=== PATIENT | female | born 1950 | race Caucasian/White ===

== ENCOUNTER 2021-10-04 12:16 | Inpatient (IN) | payer OTHER ==
[~2021-10-04] VITALS: Ht 149.9 cm; Wt 116.1 kg
[2021-10-04 12:28] VITALS: BP 103/76
--- NOTE | 2021-10-04 12:34 | NUR ---
PT SPO2 84% ON 1LNC, TITRATED UP TO 5LNC SPO2 99%. ERMD MADE AWARE. WILL CONTINUE TO MONITOR.
--- NOTE | 2021-10-04 13:10 | NUR ---
71/F PRESENTS TO ED WITH C/O WORSENING SOB, PATIENT STATES SHE IS ON 1L NC AT BASELINE. UPON ARRIVAL TO ED PATIENTS OXYGEN DROPPED TO HIGH 80S AND LOW 90S, PATIENTS O2 INCREASED TO 5-6L. PATIENT IS ALSO C/O PRODUCTIVE COUGH, DENIES FEVERS, N/V/D, ABD PAIN OR URINARY SYMPTOMS. PTAIENT REPORTS 10/10 BODY PAIN X2 DAYS.
--- NOTE | 2021-10-04 14:06 | NUR ---
LAB BEDSIDE FOR BLOOD DRAW
[2021-10-04 14:24] LABS: BASOPHILS % (AUTO) 0.4 % (0.0-2.0); EOSINOPHILS # (AUTO) 0.1 K/uL (0-0.4); EOSINOPHILS % (AUTO) 0.7 % (0.0-4.0); HEMATOCRIT 38.3 % (36-48); HEMOGLOBIN 12.5 g/dL (12.0-16.0); LYMPHOCYTES # (AUTO) 2.2 K/uL (2.5-16.5); LYMPHOCYTES % (AUTO) 23.7 % (20.5-51.1); MEAN CORPUSCULAR HEMOGLOBIN 27 pg (27-31); MEAN CORPUSCULAR HGB CONC 33 g/dL (33-37); MEAN CORPUSCULAR VOLUME 82.1 fL (80-94); MONOCYTES # (AUTO) 0.5 K/uL (0.8-1.0); NEUTROPHILS # (AUTO) 6.3 K/uL (1.8-7.7); NEUTROPHILS % (AUTO) 69.2 % (42.2-75.2); PLATELET COUNT (AUTO) 226 K/uL (140-450); RED BLOOD CELL COUNT(AUTO) 4.66 MIL/uL (4.20-5.40); RED CELL DISTRIBUTION WIDTH 18.6 % (11.6-13.7); WHITE BLOOD COUNT (AUTO) 9.1 K/uL (4.8-10.8)
[2021-10-04 14:39] LABS: APPEARANCE,URINE CLEAR (CLEAR); BILIRUBIN,URINE NEGATIVE (NEGATIVE); BLOOD, URINE TRACE-L (NEGATIVE); LEUKOCYTE ESTERASE ,URINE NEGATIVE (NEGATIVE); NITRITE, URINE NEGATIVE (NEGATIVE); UGLUCOSE NEGATIVE (NEGATIVE)
[2021-10-04] MEDS ORDERED: LEVOFLOXACIN 500 MG/D5W PREMIX 100 ML IV SCH (14:45)
--- NOTE | 2021-10-04 14:45 | NUR ---
PT NOT COOPERATIVE WITH IV INSERTION. REFUSING SEVERAL LOCATIONS FOR IVS AND INSTRUCTING NURSES TO INSERT IV WHERE SHE WOULD LIKE. UNSUCCESSFUL ATTEMPT. DR BUNN MADE AWARE
[2021-10-04 14:50] LABS: COLOR,URINE AMBER (YELLOW)
[2021-10-04 14:51] LABS: RBC,URINE 0-5 /HPF (0-5); WBC,URINE NONE SEEN /HPF (0-5)
[2021-10-04 14:57] LABS: ANION GAP 7.2 (8-16); ASPARTATE AMINOTRANSFERASE 16 U/L (15-37); CARBON DIOXIDE 32.4 mmol/L (21-32); CHLORIDE 99 mmol/L (98-107); CREATININE 0.7 mg/dL (0.6-1.3); GLUCOSE 146 mg/dL (74-106); POTASSIUM 3.6 mmol/L (3.5-5.1); SODIUM SERUM 135 mmol/L (136-145); TOTAL BILIRUBIN 0.6 mg/dL (0.0-1.0); UREA NITROGEN, BLOOD 12 mg/dL (7-18)
[2021-10-04] MEDS ORDERED: TRAZ-343 PO (15:46)
[2021-10-04] MEDS ORDERED: FURO20TA8 PO (15:46)
[2021-10-04] MEDS ORDERED: FOLI0.8T22 PO (15:46)
[2021-10-04] MEDS ORDERED: METF-350 PO (15:46)
--- NOTE | 2021-10-04 17:28 | NUR ---
Patient will be admitted to care of DR. CASTILLO. Admited to TELE. Will go to room 116. Belongings list completed. BEDSIDE REPORT TO LADAN QUEZADA.
[2021-10-04 17:55] VITALS: BP 98/50
--- NOTE | 2021-10-04 17:55 | NUR ---
RECEIVED PATIENT FROM ER NURSE VIA EMILY. PT ADMITTED FOR HYPOXIA, COVID PNA, HYPOKALEMIA. PT IS AOX4, ABLE TO MAKE NEEDS KNOWN. RESPIRATIONS EVEN AND UNLABORED. ON 6L NC WITH O2 SATURATION AT 96%. SKIN IS WARM, DRY, AND INTACT. IV SITE ON RIGHT WRIST 24 G SALINE LOCKED. INTACT AND PATENT. ABD IS SOFT, FLAT, AND NON-DISTENDED. BOWEL SOUNDS ACTIVE IN ALL QUADRANTS. DENIES PAIN AT THE MOMENT. PATIENT HAS PUREWICK IN PLACE. PLAN OF CARE DISCUSSED. SAFETY AND ISOLATION PRECAUTIONS IN PLACE. BED IN LOW POSITION. CALL LIGHT WITHIN REACH. WILL CONTINUE TO MONITOR.
[2021-10-04] MEDS ORDERED: ACETAMINOPHEN 325 MG TAB PO PRN (18:10)
[2021-10-04] MEDS ORDERED: POTASSIUM CHLORIDE 10 MEQ TABER PO PRN (18:10)
[2021-10-04] MEDS ORDERED: ONDANSETRON 4 MG/2 ML VIAL IM/IVP PRN (18:10)
[2021-10-04] MEDS ORDERED: DOCUSATE SODIUM 100 MG GELCAP PO PRN (18:10)
[2021-10-04] MEDS ORDERED: guaiFENesin DM 200/20 MG-10 ML 10 ML UDC PO PRN (18:10)
[2021-10-04] MEDS ORDERED: DEXTROSE 50% 50 ML SYR IVP PRN (18:15)
[2021-10-04 18:41] LABS: PROTHROMBIN TIME 10.6 secs (10.8-13.4)
[2021-10-04] MEDS: NACL 0.9% 1,000 ML IV SCH (19:09)
--- NOTE | 2021-10-04 19:35 | NUR ---
ENDORSED TO PROCESS IMPROVEMENT SPECIALIST NURSE FOR CONTINUITY OF CARE. PT IS STABLE.
--- NOTE | 2021-10-04 19:36 | NUR ---
RECEIVED BEDSIDE REPORT FROM DAY RN. PT IS OBSERVED SITTING ON EDGE OF BED EATING DINNER. PT IS AAOX4. RESPIRATIONS ARE EQUAL AND UNLABORED ON 6L VIA NC SAT WELL 96%. SKIN IS WARM, DRY AND INTACT. PT REQUESTING PURE WICK, PURE WICK APPLIED. PT IS AMBULATORY AND CONTINENT. IV ON L W 24 G IVF INFUSING PER ORDERS. DX COVID PNA, HYPOXIA. DROPLET ISO SIGN ON DOOR. POC REVIEWED WITH PT. CALL LIGHT IS WITHIN REACH. WILL CONTINUE TO MONITOR.
--- NOTE | 2021-10-04 19:50 | NUR ---
RESPIRATORY PANEL COLLECTED AND SENT TO LAB. PATIENT TOLERATED WELL. ALL SAFETY MEASURES ARE IN PLACE.
[2021-10-04 19:56] LABS: CHOL/HDL RATIO 4.1 (1-4.5); FREE T4 (FREE THYROXINE) 1.01 ng/dL (0.76-1.46); MAGNESIUM 1.5 mg/dL (1.8-2.4); PHOSPHORUS 4.1 mg/dL (2.5-4.9); THYROID STIMULATING HORMONE 1.9 uIU/mL (0.34-3.74)
[2021-10-04] MEDS: ALBUTEROL HFA MDI 90 MCG/ACTUATION 8 GM INH PRN (19:57)
[2021-10-04 20:00] VITALS: BP 98/45
[2021-10-04] MEDS: BLOOD GLUCOSE MONITORING 1 DEV DEV FS SCH (20:00)
[2021-10-04] MEDS ORDERED: cefTRIAXone 1,000 MG VIAL ONE (20:08)
[2021-10-04] MEDS: AZITHROMYCIN 250 MG TAB PO SCH (20:12)
--- NOTE | 2021-10-04 20:22 | NUR ---
VSS,NATHALIE MEDICATIONS GIVEN PER ORDERS. COFFEE GIVEN PER REQUEST. BS 149 NO COVERAGE NEEDED. CALL LIGHT IS WITHIN REACH. WILL CONTINUE TO MONITOR.
[2021-10-04 21:20] LABS: BARBITURATE, URINE NEGATIVE ng/ml (NEG <=200); BENZODIAZEPINE, URINE NEGATIVE ng/mL (NEG <=200); CANNABINOID, URINE POSITIVE ng/mL (NEG <=50); COCAINE, URINE NEGATIVE ng/mL (NEG <=300); OPIATE, URINE POSITIVE ng/mL (NEG <=2000); PHENCYCLIDINE SCREEN,URINE NEGATIVE ng/mL (NEG <=25)
[2021-10-04] MEDS ORDERED: MAG SULF 2000 MG/WATER PREMIX 50 ML IV SCH (21:40)
[2021-10-04] MEDS: HYDROcodone/APAP 7.5/325 MG 1 TAB PO PRN (22:07)
[2021-10-04] MEDS: ZOLPIDEM 5 MG TAB PO PRN (22:07)
--- NOTE | 2021-10-04 22:07 | NUR ---
NORCO GIVEN FOR BACK PAIN. PRN AMBIEN PER REQUEST FOR INSOMNIA. ALL NEEDS MET. WILL CONTINUE TO MONITOR
[2021-10-05] VITALS: BP 91/50
--- NOTE | 2021-10-05 00:10 | NUR ---
PATIENT WAS CLEANED AND REPOSITION FOR COMFORT. VSS. ALL SAFETY MEASURES ARE IN PLACE. WILL CONTINUE TO MONITOR.
[2021-10-05 04:00] VITALS: BP 129/74
--- NOTE | 2021-10-05 04:00 | NUR ---
VITAL SIGNS ARE WITHIN NORMAL LIMITS. ALL SAFETY MEASURES ARE IN PLACE. WILL CONTINUE TO MONITOR.
[2021-10-05] MEDS: NACL 0.9% 1,000 ML IV SCH (06:40)
[2021-10-05] MEDS: BLOOD GLUCOSE MONITORING 1 DEV DEV FS SCH ×4 (06:49→21:02)
[2021-10-05] MEDS: INSULIN LISPRO SLIDING SCALE 100 UNITS/ML VIAL SUBQ PRN ×4 (06:51→21:00)
[2021-10-05 07:07] LABS: BASOPHILS % (AUTO) 0.1 % (0.0-2.0); EOSINOPHILS # (AUTO) 0.2 K/uL (0-0.4); EOSINOPHILS % (AUTO) 3.7 % (0.0-4.0); HEMATOCRIT 36.5 % (36-48); LYMPHOCYTES % (AUTO) 33.2 % (20.5-51.1); MEAN CORPUSCULAR HEMOGLOBIN 27 pg (27-31); MEAN CORPUSCULAR HGB CONC 33 g/dL (33-37); MEAN CORPUSCULAR VOLUME 82.8 fL (80-94); MONOCYTES # (AUTO) 0.5 K/uL (0.8-1.0); MONOCYTES % (AUTO) 7.8 % (1.7-9.3); NEUTROPHILS # (AUTO) 3.3 K/uL (1.8-7.7); NEUTROPHILS % (AUTO) 55.2 % (42.2-75.2); PLATELET COUNT (AUTO) 199 K/uL (140-450); RED BLOOD CELL COUNT(AUTO) 4.41 MIL/uL (4.20-5.40); RED CELL DISTRIBUTION WIDTH 18.2 % (11.6-13.7); WHITE BLOOD COUNT (AUTO) 5.9 K/uL (4.8-10.8)
--- NOTE | 2021-10-05 07:29 | NUR ---
GAVE BEDSIDE REPORT TO DAY RN. PT ENDORSED IN STABLE CONDITION.
--- NOTE | 2021-10-05 07:30 | NUR ---
RECEIVED PT FROM PIN ATTACHER NURSE FOR CONTINUITY OF CARE. PT IS AWAKE IN BED. RESPIRATIONS EVEN AND UNLABORED IN 4L NC. PT ON TELE MONITOR. SKIN IS INTACT, WARM AND DRY TO TOUCH. IV LINE AT RIGHT WRIST 24G. CALL LIGHT WITHIN REACH. SAFETY MEASURES IN PLACE. WILL CONTINUE TO MONITOR.
[2021-10-05 07:43] LABS: ANION GAP 9.9 (8-16); CHLORIDE 102 mmol/L (98-107); CREATININE 0.5 mg/dL (0.6-1.3); GLUCOSE 149 mg/dL (74-106); POTASSIUM 3.9 mmol/L (3.5-5.1); SODIUM SERUM 138 mmol/L (136-145); UREA NITROGEN, BLOOD 9 mg/dL (7-18)
[2021-10-05 08:00] VITALS: BP 115/71
--- NOTE | 2021-10-05 09:13 | NUR ---
PATIENT HAS BEEN SCREENED AND CATEGORIZED MODERATE NUTRITION RISK. PATIENT WILL BE SEEN WITHIN 3-5 DAYS OF ADMISSION. 10/07/2021-10/09/[address]
[2021-10-05] MEDS: PANTOPRAZOLE 40 MG TABEC PO SCH (09:29)
[2021-10-05] MEDS: ASCORBIC ACID 500 MG TAB PO SCH (09:29)
[2021-10-05] MEDS: ZINC SULF 220 MG CAP PO SCH (09:29)
--- NOTE | 2021-10-05 09:55 | NUR ---
ADMINISTERED SCHEDULED MORNING MEDS. PT TEACHINGS DONE ABOUT THE MEDS. PT VERBALIZED UNDERSTANDING. PT TOLERATED WELL. PT COMPLAINED OF PAIN 6/10 ON HER FEET. WILL GIVE PRN PAIN MED ORDERED.
[2021-10-05] MEDS: HYDROcodone/APAP 7.5/325 MG 1 TAB PO PRN ×2 (10:01→22:24)
--- NOTE | 2021-10-05 11:30 | NUR ---
BLOOD SUGAR CHECK DONE. BS 181. INSULIN COVERAGE GIVEN. PT TOLERATED WELL. HOLD NS PER DR ORDER. CHANGED PT LINEN AND CLEAN PT. PT COOPERATIVE AND FOLLOWS DIRECTIONS. LEFT PT IN BED, LYING COMFORTABLY. 4L NC ON SATTING AT 93%. CALL LIGHT WITHIN REACH. BED AT ITS LOWEST POSITION, LOCKED AND BED ALARM ON. SAFETY MEASURES IN PLACE. WILL CONTINUE TO MONITOR.
[2021-10-05 12:00] VITALS: BP 117/61
--- NOTE | 2021-10-05 13:28 | NUR ---
PT IN BED, RESTING, WATCHING TV. BREATHING EVEN AND UNLABORED. NO DISTRESS NOTED. NO COMPLAINT OF PAIN. CALL LIGHT WITHIN REACH. SAFETY PRECAUTIONS IN PLACE. WILL CONTINUE TO MONITOR.
[2021-10-05] MEDS: FUROSEMIDE 40 MG/4 ML VIAL IVP SCH ×2 (14:40→16:46)
--- NOTE | 2021-10-05 15:25 | NUR ---
PT REFUSED TO TAKE FUROSEMIDE, PT STATED " I NEED A CATHETER FIRST, BEFORE I TAKE THAT MEDICINE." WILL REPORT THIS TO PT'S NURSE. Addendum: 10/05/21 at 1649 by Ernst Arias RN PLEASE DISREGARD PREVIOUS MESSAGE.
[2021-10-05 16:00] VITALS: BP 118/64
[2021-10-05] MEDS ORDERED: diphenhydrAMINE 50 MG/ML VIAL IVP SCH (16:00)
[2021-10-05] MEDS ORDERED: FLUCONAZOLE 100 MG TAB PO SCH (16:00)
[2021-10-05] MEDS ORDERED: DEXTROSE 50% 50 ML SYR IVP PRN (16:05)
--- NOTE | 2021-10-05 16:30 | NUR ---
BLOOD GLUCOSE CHECK DONE. BS 271. SLIDING SCALE INSULIN ADMINISTERED ORDERED. PLACED A LERNER CATHETER PER DR ORDER. PT TOLERATED WELL. IVP MEDS TO BE GIVEN BY RN.
--- NOTE | 2021-10-05 18:28 | NUR ---
PT IN BED, WATCHING TV. PT REMAINED CLEAN AND DRY. LERNER CATHETER IN PLACE INTACT. NO SOB NOTED. BREATHING EVEN AND UNLABORED. SAFETY PRECAUTIONS IN PLACE.
--- NOTE | 2021-10-05 19:10 | NUR ---
ENDORSED PT TO APPLICATIONS SCIENTIST NURSE FOR CONTINUITY OF CARE. ALL NEEDS MET THROUGHOUT SHIFT. PT IS STABLE.
--- NOTE | 2021-10-05 19:25 | NUR ---
RECEIVED PT FROM AM NURSE FOR CONTINUITY OF CARE. PT IS STABLE
[2021-10-05 20:00] VITALS: BP 95/51
[2021-10-05] MEDS: AZITHROMYCIN 250 MG TAB PO SCH (20:51)
[2021-10-05] MEDS: traZODone 50 MG TAB PO SCH (20:51)
[2021-10-05] MEDS ORDERED: PERMETHRIN 5% 60 GM TUBE TP SCH (21:00)
--- NOTE | 2021-10-05 21:30 | NUR ---
ALL MEDICATIONS GIVEN,,PERMETHRINE APPLIED FROM HEAD TO TOE
[2021-10-05] MEDS: ZOLPIDEM 5 MG TAB PO PRN (22:24)
[2021-10-06] VITALS: BP 92/47
--- NOTE | 2021-10-06 03:00 | NUR ---
PATIENT ASLEEP, BREATHING EVEN AND UNLABORED ,NO DISTRESS NOTED
[2021-10-06 04:00] VITALS: BP 105/49
[2021-10-06] MEDS: INSULIN LISPRO SLIDING SCALE 100 UNITS/ML VIAL SUBQ PRN ×4 (06:25→21:00)
[2021-10-06] MEDS: BLOOD GLUCOSE MONITORING 1 DEV DEV FS SCH ×4 (06:29→21:02)
[2021-10-06 06:44] LABS: BASOPHILS % (AUTO) 0.4 % (0.0-2.0); EOSINOPHILS % (AUTO) 0.2 % (0.0-4.0); HEMATOCRIT 37.5 % (36-48); HEMOGLOBIN 12.2 g/dL (12.0-16.0); LYMPHOCYTES # (AUTO) 1.4 K/uL (2.5-16.5); MEAN CORPUSCULAR HEMOGLOBIN 27 pg (27-31); MEAN CORPUSCULAR HGB CONC 33 g/dL (33-37); MEAN CORPUSCULAR VOLUME 82.8 fL (80-94); MONOCYTES # (AUTO) 0.4 K/uL (0.8-1.0); MONOCYTES % (AUTO) 5.1 % (1.7-9.3); NEUTROPHILS # (AUTO) 5.4 K/uL (1.8-7.7); NEUTROPHILS % (AUTO) 75.3 % (42.2-75.2); PLATELET COUNT (AUTO) 198 K/uL (140-450); RED BLOOD CELL COUNT(AUTO) 4.52 MIL/uL (4.20-5.40); RED CELL DISTRIBUTION WIDTH 18.3 % (11.6-13.7); WHITE BLOOD COUNT (AUTO) 7.2 K/uL (4.8-10.8)
[2021-10-06 07:07] LABS: ANION GAP 8.3 (8-16); CARBON DIOXIDE 31.9 mmol/L (21-32); CHLORIDE 98 mmol/L (98-107); CREATININE 0.6 mg/dL (0.6-1.3); GLUCOSE 208 mg/dL (74-106); POTASSIUM 4.2 mmol/L (3.5-5.1); SODIUM SERUM 134 mmol/L (136-145); UREA NITROGEN, BLOOD 13 mg/dL (7-18)
--- NOTE | 2021-10-06 07:25 | NUR ---
RECEIVED REPORT FROM ENVIRONMENTAL TEST TECHNICIAN NURSE FOR CONTINUITY OF CARE. PT IS IN BED SLEEPING EASILY AROUSABLE BY VERBAL STIMULI. A&O4. BREATHING EVEN AND UNLABORED ON 4L NC. IV LINE ON RIGHT WRIST, SALINE LOCK. PT ON LERNER CATHETER, INTACT. CALL LIGHT WITHIN REACH. SAFETY MEASURES IN PLACE. WILL CONTINUE TO MONITOR.
[2021-10-06 08:00] VITALS: BP 102/75
[2021-10-06] MEDS ORDERED: FUROSEMIDE 20 MG TAB PO SCH (09:00)
[2021-10-06] MEDS: FUROSEMIDE 40 MG/4 ML VIAL IVP SCH (09:00)
[2021-10-06] MEDS: PANTOPRAZOLE 40 MG TABEC PO SCH (09:19)
[2021-10-06] MEDS: ASCORBIC ACID 500 MG TAB PO SCH (09:19)
[2021-10-06] MEDS: ZINC SULF 220 MG CAP PO SCH (09:19)
--- NOTE | 2021-10-06 09:29 | NUR ---
ADMINISTERED ALL SCHEDULED MORNING MEDS. PT TEACHING DONE. PT VERBALIZED UNDERSTANDING. PT TOLERATED WELL. PT COMPLAINT OF PAIN 6/10 ON HER LEGS. WILL MEDICATE ORDERED.
[2021-10-06] MEDS: HYDROcodone/APAP 7.5/325 MG 1 TAB PO PRN ×2 (09:35→23:02)
[2021-10-06 12:00] VITALS: BP 127/93
--- NOTE | 2021-10-06 12:05 | NUR ---
BLOOD SUGAR CHECK TAKEN. BS 224. INSULIN COVERAGE GIVEN. PT TOLERATED WELL.
--- NOTE | 2021-10-06 14:00 | NUR ---
PT HOME O2 EVAL ORDERED. PT STATES SHE HAS WORN 2L NASAL CANNULA FOR THE PAST 23 YEARS. I REMOVED THE CANNULA AND PLACED THE PATIENT ON ROOM AIR WITH A PULSE OXIMETER IN PLACE. WITHIN A MINUTE THE PATIENT DESATURATED TO LESS THAN 90% ON ROOM AIR. I PLACED THE 2L NASAL CANNULA BACK ON THE PATIENT. I MONITORED THE PATIENT UNTIL HER SATURATIONS WERE ABOVE 95%
[2021-10-06] MEDS ORDERED: LORazepam 2 MG/ML VIAL IVP PRN (15:15)
--- NOTE | 2021-10-06 15:22 | NUR ---
PT COMPLAINT OF FEELING DIFFERENT AND SWEATING A LOT. STATED " I FEEL LIKE MY SUGAR IS HIGH". DID BLOOD GLUCOSE CHECK. BS 345. DR ORDERED LANTUS. PT ALSO ASKING FOR ANXIETY MED. DR ORDERED PRN IVP ATIVAN. WILL MEDICATE PT ORDERED.
[2021-10-06] MEDS ORDERED: INSULIN LANTUS 100 UNITS/ML 10 ML VIAL SUBQ SCH (15:30)
[2021-10-06 16:00] VITALS: BP 100/60
--- NOTE | 2021-10-06 17:29 | NUR ---
BLOOD GLUCOSE CHECK DONE. BS 360. SLIDING SCALE INSULIN GIVEN. PT TOLERATED WELL.
--- NOTE | 2021-10-06 17:58 | NUR ---
LORAZEPAM ADMINISTERED BY RN. PARTIAL DOSE 1MG LORAZEPAM WASTED WITNESSED BY LADAN PALACIO
--- NOTE | 2021-10-06 18:00 | NUR ---
IV LINE LEAKING. INSERTED NEW IV LINE AT LEFT HAND G24. PT TOLERATED WELL.
--- NOTE | 2021-10-06 19:15 | NUR ---
ENDORSED REPORT TO NUCLEAR MEDICINE MEDICAL DIRECTOR NURSE FOR CONTINUITY OF CARE. ALL NEEDS MET THROUGHOUT SHIFT. PT IS STABLE.
--- NOTE | 2021-10-06 19:20 | NUR ---
PT ON 2L NASAL CANNULA SATURATION IS 94% EQUAL CLEAR BREATH SOUNDS AND CHEST RISE. NON PRODUCTIVE COUGH.
--- NOTE | 2021-10-06 19:30 | NUR ---
RECEIVED PT FROM AM NURSE FOR CONTINUITY OF CARE. PT IS STABLE
[2021-10-06 20:00] VITALS: BP 116/67
[2021-10-06] MEDS: AZITHROMYCIN 250 MG TAB PO SCH (20:37)
[2021-10-06] MEDS: traZODone 50 MG TAB PO SCH (20:37)
--- NOTE | 2021-10-06 21:35 | NUR ---
ALL MEDICATIONS GIVEN TOLERATED WELL,RESPIRATION EVEN AND UNLABORED
[2021-10-06] MEDS: ZOLPIDEM 5 MG TAB PO PRN (22:03)
[2021-10-07] VITALS: BP 113/59
--- NOTE | 2021-10-07 01:00 | NUR ---
PATIENT'S IV CAME OFF, INSERTED NEW IV STILL ON LEFT HAND 24 G, PATENT AND INTACT
--- NOTE | 2021-10-07 03:00 | NUR ---
PATIENT ASLEEP, BREATHING EVEN AND UNLABORED,NO DISTRESS NOTED
[2021-10-07 04:00] VITALS: BP 146/73
--- NOTE | 2021-10-07 06:22 | NUR ---
PATIENT IS AWAKE, NO COUGH OR PAIN NOTED,BLD GLUCOSE AT 185
[2021-10-07 06:34] LABS: EOSINOPHILS % (AUTO) 0.2 % (0.0-4.0); HEMATOCRIT 39.4 % (36-48); HEMOGLOBIN 12.9 g/dL (12.0-16.0); LYMPHOCYTES # (AUTO) 1.8 K/uL (2.5-16.5); LYMPHOCYTES % (AUTO) 21.4 % (20.5-51.1); MEAN CORPUSCULAR HEMOGLOBIN 27 pg (27-31); MEAN CORPUSCULAR HGB CONC 33 g/dL (33-37); MEAN CORPUSCULAR VOLUME 82.1 fL (80-94); MONOCYTES # (AUTO) 0.5 K/uL (0.8-1.0); MONOCYTES % (AUTO) 5.5 % (1.7-9.3); NEUTROPHILS # (AUTO) 6.3 K/uL (1.8-7.7); NEUTROPHILS % (AUTO) 72.9 % (42.2-75.2); PLATELET COUNT (AUTO) 214 K/uL (140-450); RED CELL DISTRIBUTION WIDTH 18.1 % (11.6-13.7); WHITE BLOOD COUNT (AUTO) 8.6 K/uL (4.8-10.8)
[2021-10-07 06:46] LABS: ANION GAP 7.4 (8-16); CARBON DIOXIDE 33.8 mmol/L (21-32); CHLORIDE 96 mmol/L (98-107); CREATININE 0.8 mg/dL (0.6-1.3); GLUCOSE 194 mg/dL (74-106); POTASSIUM 4.2 mmol/L (3.5-5.1); SODIUM SERUM 133 mmol/L (136-145); UREA NITROGEN, BLOOD 20 mg/dL (7-18)
[2021-10-07] MEDS: BLOOD GLUCOSE MONITORING 1 DEV DEV FS SCH ×4 (06:47→20:28)
[2021-10-07 06:51] LABS: MAGNESIUM 1.6 mg/dL (1.8-2.4); PHOSPHORUS 3.4 mg/dL (2.5-4.9)
--- NOTE | 2021-10-07 07:15 | NUR ---
RECEIVED REPORT FROM TEST CENTER ADMINISTRATOR NURSE FOR CONTINUITY OF CARE. PT IN BED WATCHING TELEVISION AT THIS TIME. RESPIRATIONS ARE EVEN AND UNLABORED ON 4L 02 VIA NC. NO SIGNS OF DISTRESS NOTED. PT IS ALERT AND ORIENTED X4. ABLE TO VERBALIZE NEEDS, ABLE TO FOLLOW COMMANDS. PT IS ON CARDIAC MONITORING, SINUS RHYTHM. PT IS ON CARDIAC DIET, ABD IS NONTENDER, NONDISTENDED WITH BOWEL SOUNDS PRESENT. PT HAS LERNER CATHETER IN PLACE, DRAINING YELLOW CLEAR LIQUID. SKIN IS WARM, DRY, AND INTACT. PT HAS IV TO L HAND, 24G, SALINE LOCKED. CALL LIGHT WITHIN REACH. ALL SAFETY MEASURES IN PLACE. WILL CONTINUE TO MONITOR.
[2021-10-07 08:00] VITALS: BP 121/58
[2021-10-07] MEDS: MAGNESIUM OXIDE 400 MG TAB PO SCH (09:09)
[2021-10-07] MEDS: PANTOPRAZOLE 40 MG TABEC PO SCH (09:10)
[2021-10-07] MEDS: ASCORBIC ACID 500 MG TAB PO SCH (09:10)
[2021-10-07] MEDS: ZINC SULF 220 MG CAP PO SCH (09:10)
[2021-10-07] MEDS: INSULIN LANTUS 100 UNITS/ML 10 ML VIAL SUBQ SCH (09:20)
--- NOTE | 2021-10-07 09:22 | NUR ---
ADMINISTERED ALL SCHEDULED MEDICATIONS. EDUCATED PT ON MEDS ADMINISTERED. PT VERBALIZED UNDERSTANDING. WILL CONTINUE TO MONITOR.
[2021-10-07] MEDS: FUROSEMIDE 40 MG/4 ML VIAL IVP SCH (10:10)
[2021-10-07] MEDS: INSULIN LISPRO SLIDING SCALE 100 UNITS/ML VIAL SUBQ PRN ×2 (11:37→16:34)
[2021-10-07 12:00] VITALS: BP 100/54
--- NOTE | 2021-10-07 12:30 | NUR ---
PT PRESSED CALL LIGHT. WENT TO CHECK ON PT. PT UNHAPPY WITH FOOD SERVED FOR LUNCH. OFFERED ALTERNATIVE, PT AGREED. BROUGHT ALTERNATIVE, PT AGAIN UNHAPPY AND THREW TRAY ON FLOOR. CLEANED UP. WILL CONTINUE TO MONITOR.
--- NOTE | 2021-10-07 13:15 | NUR ---
PT CALLED AND STATED SHE WAS FEELING ITCHY. STATED SHE WANTED STAFF TO SCRATCH HER AND THEN PUT OIL ALL OVER HER. ENCOURAGED PT TO GET UP AND TRY TO AMBULATE AROUND ROOM, ALSO TO GO AHEAD AND PUT SOME LOTION ON INDEPENDENTLY. PT GOT UPSET AND YELLED AT STAFF. WILL CONTINUE TO MONITOR.
--- NOTE | 2021-10-07 14:45 | NUR ---
PT YELLING STATING SHE IS WET. WENT TO CHECK ON PT. PT HAD SPILLED SOME WATER ON A BLANKET NEAR BY. REMOVED BLANKET. PT STATING SHE WANTS ENTIRE BED CHANGED. HELMET HAT BRIM CUTTER CHANGED BED. WILL CONTINUE TO MONITOR.
[2021-10-07 16:00] VITALS: BP 115/56
--- NOTE | 2021-10-07 16:35 | NUR ---
PT BLOOD GLUCOSE 375. ADMINISTERED 10 UNITS INSULIN PER SLIDING SCALE. WILL CONTINUE TO MONITOR.
--- NOTE | 2021-10-07 17:35 | NUR ---
PT CALLED AND STARTED YELLING "IM ALL WET! I PISSED MYSELF. COME CHANGED ME AND MOP THE FLOOR". INFORMED PT THAT THE BED AND HER GOWN WERE NOT SOILED, ONLY THE FLOOR HAD SOME WATER DUE TO HER DROPPING HER WATER BOTTLE. PT STARTED TO YELL "IM WET, EVERYTHING IS WET. CLEAN ME NOW. MY INSURANCE PAYS FOR YOU TO BE HERE NOW CLEAN ME". ENGINEER FISHING VESSEL AND NURSE CLEANED UP PT AND CHANGED BED. WILL CONTINUE TO MONITOR.
--- NOTE | 2021-10-07 18:30 | NUR ---
P.T. NOTES P.T. EVAL COMPLETED; REFER TO EVAL FOR DETAILS.
--- NOTE | 2021-10-07 19:15 | NUR ---
ENDORSED PT TO SCHOOL BOAT DRIVER NURSE FOR CONTINUITY OF CARE. PT IS STABLE.
[2021-10-07 20:00] VITALS: BP 117/56
[2021-10-07] MEDS: AZITHROMYCIN 250 MG TAB PO SCH (20:27)
[2021-10-07] MEDS: traZODone 50 MG TAB PO SCH (20:27)
[2021-10-07] MEDS: ZOLPIDEM 5 MG TAB PO PRN (22:08)
[2021-10-07] MEDS: HYDROcodone/APAP 7.5/325 MG 1 TAB PO PRN (22:08)
[2021-10-08] VITALS: BP 90/50
[2021-10-08] MEDS: ALBUTEROL HFA MDI 90 MCG/ACTUATION 8 GM INH PRN (00:06)
[2021-10-08 04:00] VITALS: BP 88/38
[2021-10-08] MEDS: BLOOD GLUCOSE MONITORING 1 DEV DEV FS SCH ×2 (06:33→12:26)
[2021-10-08 06:49] LABS: BASOPHILS % (AUTO) 0.2 % (0.0-2.0); EOSINOPHILS % (AUTO) 0.1 % (0.0-4.0); HEMATOCRIT 39.2 % (36-48); HEMOGLOBIN 12.8 g/dL (12.0-16.0); LYMPHOCYTES # (AUTO) 1.9 K/uL (2.5-16.5); LYMPHOCYTES % (AUTO) 23.1 % (20.5-51.1); MEAN CORPUSCULAR HEMOGLOBIN 27 pg (27-31); MEAN CORPUSCULAR HGB CONC 33 g/dL (33-37); MEAN CORPUSCULAR VOLUME 82.4 fL (80-94); MONOCYTES # (AUTO) 0.5 K/uL (0.8-1.0); NEUTROPHILS # (AUTO) 5.9 K/uL (1.8-7.7); NEUTROPHILS % (AUTO) 70.6 % (42.2-75.2); PLATELET COUNT (AUTO) 211 K/uL (140-450); RED BLOOD CELL COUNT(AUTO) 4.76 MIL/uL (4.20-5.40); RED CELL DISTRIBUTION WIDTH 18.4 % (11.6-13.7); WHITE BLOOD COUNT (AUTO) 8.4 K/uL (4.8-10.8)
[2021-10-08 06:55] LABS: CHLORIDE 95 mmol/L (98-107); CREATININE 0.9 mg/dL (0.6-1.3); GLUCOSE 241 mg/dL (74-106); SODIUM SERUM 131 mmol/L (136-145); UREA NITROGEN, BLOOD 26 mg/dL (7-18)
--- NOTE | 2021-10-08 07:10 | NUR ---
RECEIVED REPORT FROM SCREEN MAKING SUPERVISOR NURSE FOR CONTINUITY OF CARE. PT IN BED SLEEPING AT THIS TIME. RESPIRATIONS ARE EVEN AND UNLABORED ON 4L 02 VIA NC. NO SIGNS OF DISTRESS NOTED. PT IS ALERT AND ORIENTED X4. ABLE TO VERBALIZE NEEDS, ABLE TO FOLLOW COMMANDS. PT IS ON CARDIAC MONITORING, SINUS RHYTHM. PT IS ON PUREE DIET, CARDIAC AND CCHO, ABD IS NONTENDER, NONDISTENDED WITH BOWEL SOUNDS PRESENT. LAST BOWEL MOVEMENT WITH LAST NIGHT WITH SCREEN MAKING SUPERVISOR. PT HAS LERNER CATHETER IN PLACE, DRAINING YELLOW CLEAR LIQUID. SKIN IS WARM, DRY, AND INTACT. PT HAS IV TO L HAND, 24G, SALINE LOCKED. CALL LIGHT WITHIN REACH. ALL SAFETY MEASURES IN PLACE. WILL CONTINUE TO MONITOR.
[2021-10-08 08:00] VITALS: BP 114/57
--- NOTE | 2021-10-08 08:00 | NUR ---
Patient's Plan of Care was discussed and reviewed with MIRIAM Sánchez
--- NOTE | 2021-10-08 08:08 | NUR ---
REC'D PT AWAKE AND ALERT ON 4L NC, SPO2 97%, TITRATED PT TO 2L NC 95%. WILL CONTINUE TO MONITOR. RN AWARE.
[2021-10-08] MEDS: INSULIN LANTUS 100 UNITS/ML 10 ML VIAL SUBQ SCH (08:54)
--- NOTE | 2021-10-08 08:56 | NUR ---
ADMINISTERED ALL SCHEDULED MEDICATIONS. EDUCATED PT ON MEDS ADMINISTERED. WILL CONTINUE TO MONITOR.
[2021-10-08] MEDS: ASCORBIC ACID 500 MG TAB PO SCH (08:58)
[2021-10-08] MEDS: MAGNESIUM OXIDE 400 MG TAB PO SCH (08:58)
[2021-10-08] MEDS: PANTOPRAZOLE 40 MG TABEC PO SCH (08:58)
[2021-10-08] MEDS: ZINC SULF 220 MG CAP PO SCH (08:59)
[2021-10-08] MEDS ORDERED: FLUTICASONE NASAL 50 MCG/ACTUATION 16 GM BTL NS SCH (09:00)
[2021-10-08] MEDS ORDERED: ALBU0.0912 INH (09:46)
[2021-10-08] MEDS: FUROSEMIDE 40 MG/4 ML VIAL IVP SCH (09:55)
--- NOTE | 2021-10-08 10:20 | NUR ---
DC PLANNING: THE PATIENT ADMITTED FROM HOME WITH INCREASING SOB. H/O DM, CHF, HTN, AND ASTHMA, ON HOME O2 OF 2L AT BASELINE. PATIENT PLACED ON 6L O2 IN ED, CXR SHOWS INFILTRATES CONCERNING FOR VIRAL PNA AND EDEMA. GIVEN LEVAQUIN IV X 1 IN ED, STARTED ON ROCEPHIN IV, HHN'S, ZITHROMAX PO AND DECADRON PO. CONSULTS WITH ID AND PULMONOLOGY ORDERED. CM SPOKE WITH THE PATIENT AT BEDSIDE AND CONFIRMED HER ADDRESS AND PHONE NUMBER. ALSO TRIED TO REACH HER DAUGHTER LAUREN TO CONFIRM INFORMATION, NO ANSWER AND UNABLE TO LEAVE . THE PATIENT LIVES IN A SINGLE STORY HOUSE WITH HER DAUGHTER LAUREN, HER SON IN LAW AND A FRIEND OF HER DAUGHTERS. THE PATIENT IS INDEPENDENT WITH AMBULATION AND ADL'S AND HAS DME OF HOME O2 AND A WC. THE PATIENT WOULD LIKE A WALKER WITH A SEAT, AND HAS HOME HEALTH IN THE PAST BUT NOT RECENTLY, WOULD LIKE THIS WELL. SHE STATES SHE HAS NO ACTIVITY LIMITATIONS AND THAT HER DAUGHTER PROVIDES TRANSPORT AND ASSISTANCE NEEDED. SHE SEES HER PMD DR HERNÁNDEZ IN [place] REGULARLY. CM WILL ORDER HOME HEALTH, AND WILL SEND PT NOTES AND ORDER FOR 4 WHEEL WALKER. CM WILL FOLLOW. Addendum: 10/08/21 at 1522 by Brianna Cobb CM DC PLANNING: THE PATIENT WAS REFERRED TO [facility], THEY ARE UNABLE TO ACCEPT THE PATIENT BECAUSE THEY CAN'T STAFF IN [place]. NEEL THEN SPOKE WITH THE PATIENTS DAUGHTER, SHE WOULD LIKE THE PATIENT REFERRED TO [facility] ([phone]), SHE WAS ACCEPTED ON SERVICE WITH [facility] 10/10 FOR P.T. AND RN OVERSIGHT. CM ATTEMPTED TO REACH THE DAUGHTER, WAS UNABLE TO LEAVE . CM IS WAITING FOR THE P.T. NOTES TO BE AMMENDED SO THAT THE 4 WHEEL WALKER CAN BE ORDERED THROUGH [facility]. CM WILL FOLLOW.
--- NOTE | 2021-10-08 11:22 | NUR ---
PT HAS DISCHARGE ORDER IN PLACE. INFORMED PT, PT STATES SHE WILL CALL DAUGHTER TO PICK HER UP. THIS NURSE CALLED DAUGHTER, PT DAUGHTER ASKED "CAN YOU GUYS KEEP HER ONE MORE NIGHT A COURTESY? I HAVE ERRANDS TO RUN". INFORMED DAUGHTER THAT PT HAS DISCHARGE ORDER IN PLACE, PT CANNOT BE KEPT AT HOSPITAL IF THERE IS NO CLINICAL INDICATION. DAUGHTER STATED SHE WILL BE HERE TO EXTERMINATOR PT AT 1400. PT MADE AWARE. WILL CONTINUE TO MONITOR.
[2021-10-08] MEDS: INSULIN LISPRO SLIDING SCALE 100 UNITS/ML VIAL SUBQ PRN (12:35)
--- NOTE | 2021-10-08 12:37 | NUR ---
PT BLOOD GLUCOSE WAS 267. COVERED WITH 6 UNITS INSULIN PER SLIDING SCALE. WILL CONTINUE TO MONITOR.
[2021-10-08 12:52] VITALS: BP 114/57
--- NOTE | 2021-10-08 13:40 | NUR ---
WENT OVER DISCHARGE PAPERWORK WITH PT. ANSWERED ALL QUESTIONS. PT SIGNED ALL PAPERWORK. WRIST BAND REMOVED. IV REMOVED. IV CATHETER IN TACT. REMOVED LERNER CATHETER. PT IS PACKING UP BELONGINGS. AWAITING DAUGHTER TO PROCESSING MANAGER PT.
--- NOTE | 2021-10-08 13:52 | NUR ---
PT DISCHARGED HOME WITH FAMILY. DAUGHTER CAME TO REAL TIME ANALYST PT IN PRIVATE VEHICLE. ALL BELONGINGS TAKEN UPON DISCHARGE.
== END 2021-10-08 13:50 | disposition home or self-care (01) | DRG 871 ==
LOC: MED 12:16 → MTU 16:45
PROVIDERS: ADMIT Family Medicine; ATTEND Family Medicine
DX: A41.9 Sepsis, unspecified organism (principal); I50.43 Acute on chronic combined systolic (congestive) and diastolic (congestive) heart failure; J12.9 Viral pneumonia, unspecified; J96.21 Acute and chronic respiratory failure with hypoxia; E87.1 Hypo-osmolality and hyponatremia; E44.1 Mild protein-calorie malnutrition; I42.9 Cardiomyopathy, unspecified; Z68.43 Body mass index [BMI] 50.0-59.9, adult; J44.0 Chronic obstructive pulmonary disease with (acute) lower respiratory infection; I11.0 Hypertensive heart disease with heart failure; E83.42 Hypomagnesemia; E78.5 Hyperlipidemia, unspecified; E66.9 Obesity, unspecified; E11.9 Type 2 diabetes mellitus without complications; K42.9 Umbilical hernia without obstruction or gangrene; K74.60 Unspecified cirrhosis of liver; M75.30 Calcific tendinitis of unspecified shoulder; Z20.822 Contact with and (suspected) exposure to COVID-19; Z87.891 Personal history of nicotine dependence; Z88.0 Allergy status to penicillin; Z79.899 Other long term (current) drug therapy; Z91.19 Patient's noncompliance with other medical treatment and regimen
CPT/HCPCS: 36415; 71045; 80048; 80053; 80305; 81001; 82150; 82948; 83036; 83605; 83615; 83690; 83735; 83880; 84100; 84436; 84439; 84443; 84479; 84484; 85025; 85379; 85610; 85651; 85730; 86140; 87040; 87081; 87086; 87635-QW; 93005; 94664; 97163-GP; 99285; J0696; J1200; J1644; J1815; J1940; J2060; J3475; J7060; Q0092; Q0163

== ENCOUNTER 2021-11-06 12:07 | Inpatient (IN) | payer OTHER ==
[~2021-11-06] VITALS: Ht 157.5 cm; Wt 99.8 kg
[~2021-11-06 12:07] MED LIST: ALBU0.0912 INH; FOLI0.8T22 PO; FURO20TA8 PO; METF-350 PO; TRAZ-343 PO
--- NOTE | 2021-11-06 12:09 | NUR ---
PT BIBA BLS TO BED 09. Addendum: 11/06/21 at 1620 by MNURBMD PT EATING SANDWICH AND DRINKING JUICE
[2021-11-06 12:15] VITALS: BP 96/49
--- NOTE | 2021-11-06 12:15 | NUR ---
71 Y/O FEMALE BIBA FROM HOME, STATED THAT THE OXYGEN RAN OUT AND THAT THE POWER WENT OUT. STATED THAT HER OXYGEN IS LOW BATTERY AND THAT IT ONLY LASTS FOR 2 HOURS ALLERGY: PEANUTS, PCN PMH: COPD, SLEEP APNEA
[2021-11-06] MEDS ORDERED: ALBUTEROL SULFATE/IPRATROPIU 3 ML SOL IH ONE (13:00)
--- NOTE | 2021-11-06 13:11 | NUR ---
rt at bedside
--- NOTE | 2021-11-06 13:11 | NUR ---
HHN THERAPY AND RESPIRATORY DRUG GIVEN ORDERED ENCOURAGED PATIENT FOR INTERMITTENT DEEP BREATHING DURING THERAPY
[2021-11-06] MEDS ORDERED: LEVOFLOXACIN 750 MG/D5W PREMIX 150 ML IV ONE (13:35)
[2021-11-06] MEDS ORDERED: methylPREDNISolone SS 125 MG/2 ML VIAL IVP ONE (13:35)
--- NOTE | 2021-11-06 13:56 | NUR ---
SWABS HANDED TO LAURA
--- NOTE | 2021-11-06 13:57 | NUR ---
LAB AT BEDSIDE BLOOD SENT TO LAB WITH LAURA
[2021-11-06 14:12] LABS: BASOPHILS % (AUTO) 0.6 % (0.0-2.0); EOSINOPHILS # (AUTO) 0.2 K/uL (0-0.4); HEMATOCRIT 37.3 % (36-48); HEMOGLOBIN 12.1 g/dL (12.0-16.0); LYMPHOCYTES # (AUTO) 2.5 K/uL (2.5-16.5); LYMPHOCYTES % (AUTO) 32.7 % (20.5-51.1); MEAN CORPUSCULAR HEMOGLOBIN 28 pg (27-31); MEAN CORPUSCULAR HGB CONC 32 g/dL (33-37); MEAN CORPUSCULAR VOLUME 84.8 fL (80-94); MONOCYTES # (AUTO) 0.6 K/uL (0.8-1.0); NEUTROPHILS # (AUTO) 4.3 K/uL (1.8-7.7); NEUTROPHILS % (AUTO) 56.7 % (42.2-75.2); PLATELET COUNT (AUTO) 226 K/uL (140-450); RED BLOOD CELL COUNT(AUTO) 4.39 MIL/uL (4.20-5.40); RED CELL DISTRIBUTION WIDTH 18.7 % (11.6-13.7); WHITE BLOOD COUNT (AUTO) 7.6 K/uL (4.8-10.8)
[2021-11-06 14:38] LABS: ALBUMIN 2.8 g/dL (3.4-5.0); ANION GAP 7.5 (8-16); ASPARTATE AMINOTRANSFERASE 14 U/L (15-37); CARBON DIOXIDE 31.6 mmol/L (21-32); CHLORIDE 101 mmol/L (98-107); CREATININE 0.8 mg/dL (0.6-1.3); GLUCOSE 167 mg/dL (74-106); POTASSIUM 4.1 mmol/L (3.5-5.1); SODIUM SERUM 136 mmol/L (136-145); TOTAL BILIRUBIN 0.3 mg/dL (0.0-1.0); UREA NITROGEN, BLOOD 19 mg/dL (7-18)
[2021-11-06] MEDS ORDERED: ACET-9534 PO (15:47)
[2021-11-06] MEDS ORDERED: ATOR40TA40 PO (15:47)
[2021-11-06 16:01] LABS: APPEARANCE,URINE CLEAR (CLEAR); BILIRUBIN,URINE NEGATIVE (NEGATIVE); BLOOD, URINE NEGATIVE (NEGATIVE); COLOR,URINE YELLOW (YELLOW); LEUKOCYTE ESTERASE ,URINE NEGATIVE (NEGATIVE); NITRITE, URINE NEGATIVE (NEGATIVE); UGLUCOSE NEGATIVE (NEGATIVE)
[2021-11-06] MEDS ORDERED: MAG SULF 2000 MG/WATER PREMIX 50 ML IV PRN (16:30)
[2021-11-06] MEDS ORDERED: DOCUSATE SODIUM 100 MG GELCAP PO PRN (16:30)
[2021-11-06] MEDS ORDERED: ZOLPIDEM 5 MG TAB PO PRN (16:30)
[2021-11-06] MEDS ORDERED: ONDANSETRON 4 MG/2 ML VIAL IM/IVP PRN (16:30)
[2021-11-06] MEDS ORDERED: DEXTROSE 50% 50 ML SYR IVP PRN (16:30)
[2021-11-06] MEDS ORDERED: ALBUTEROL HFA MDI 90 MCG/ACTUATION 8 GM INH PRN (16:30)
[2021-11-06] MEDS ORDERED: ALBUTEROL SULFATE/IPRATROPIU 3 ML SOL IH PRN (16:30)
[2021-11-06] MEDS ORDERED: ACETAMINOPHEN 325 MG TAB PO PRN (16:30)
[2021-11-06] MEDS ORDERED: POTASSIUM CHLORIDE 10 MEQ TABER PO PRN (16:30)
--- NOTE | 2021-11-06 16:40 | NUR ---
Patient will be admitted to care of DR TRAN. Admited to TELEMETRY. Will go to [id number]. Belongings list completed. Report to MAE PICKERING.
[2021-11-06 16:50] VITALS: BP 104/46
--- NOTE | 2021-11-06 16:50 | NUR ---
PT ARRIVED TO UNIT VIA GURNEY. PT IS AWAKE AND ALERT. A&OX4. ON 3L O2 NC WITH BREATHING UNLABORED. AMBULATE WITH ASSIST. SKIN IS WARM, DRY, AND INTACT. IV IS INTACT AND PATENT. BEDSIDE COMMODE PLACED NEXT TO BED WITH EXTENSION TUBING. PT IS STABLE. PLAN OF CARE DISCUSSED.
[2021-11-06 17:07] LABS: THYROID STIMULATING HORMONE 2.38 uIU/mL (0.34-3.74)
[2021-11-06] MEDS: BLOOD GLUCOSE MONITORING 1 DEV DEV FS SCH ×2 (17:29→22:30)
[2021-11-06] MEDS: INSULIN LISPRO SLIDING SCALE 100 UNITS/ML VIAL SUBQ PRN ×2 (17:31→23:13)
[2021-11-06 17:51] LABS: RBC,URINE NONE SEEN /HPF (0-5); WBC,URINE NONE SEEN /HPF (0-5)
--- NOTE | 2021-11-06 19:18 | NUR ---
ENDORSED PT TO DIAMOND WHEEL MOLDER NURSE FOR CONTINUITY OF CARE. PT IS STABLE. PLAN OF CARE DISCUSSED.
[2021-11-06 19:37] LABS: PROTHROMBIN TIME 9.8 secs (10.8-13.4)
[2021-11-06 20:00] VITALS: BP 103/56
--- NOTE | 2021-11-06 22:00 | NUR ---
BP RE CHECK 105/ 61 , CO 62
[2021-11-06] MEDS: metFORMIN 850 MG TAB PO SCH (22:29)
[2021-11-06] MEDS: methylPREDNISolone SS 125 MG/2 ML VIAL IVP SCH (22:35)
[2021-11-06] MEDS: HYDROcodone/APAP 5/325 MG 1 TAB TAB PO PRN (22:36)
[2021-11-06] MEDS: traZODone 50 MG TAB PO SCH (22:37)
[2021-11-07] VITALS: BP 101/58
--- NOTE | 2021-11-07 01:10 | NUR ---
BP RE CHECK 106/60 HR 59
--- NOTE | 2021-11-07 02:00 | NUR ---
SLEEPING , BUT EASILY AROUSE BY SOUNDS , CALL LIGHT WITHIN REACH , ON TELE MONITOR .
[2021-11-07 04:00] VITALS: BP 116/50
[2021-11-07] MEDS: methylPREDNISolone SS 125 MG/2 ML VIAL IVP SCH ×2 (05:37→13:13)
--- NOTE | 2021-11-07 05:56 | NUR ---
PUT ON PUREWICK - FOR URINE COLLECTION FOR URINE DRUG TEST
[2021-11-07] MEDS: BLOOD GLUCOSE MONITORING 1 DEV DEV FS SCH ×4 (06:47→21:00)
--- NOTE | 2021-11-07 06:57 | NUR ---
C/O PAIN - BP 110/ 62 - WILL MEDICATE
[2021-11-07] MEDS: HYDROcodone/APAP 5/325 MG 1 TAB TAB PO PRN (06:59)
--- NOTE | 2021-11-07 07:00 | NUR ---
REFER TO DR. TRAN - PT REQUESTING FOR ANTI ANXIETY MED - WILL ENDORSE.
[2021-11-07] MEDS: ALBUTEROL SULFATE/IPRATROPIU 3 ML SOL IH SCH ×3 (07:08→19:51)
[2021-11-07] MEDS: INSULIN LISPRO SLIDING SCALE 100 UNITS/ML VIAL SUBQ PRN ×4 (07:09→22:09)
--- NOTE | 2021-11-07 07:27 | NUR ---
ENDORSED - PT - JOAN , I ENDORSED TO LADAN HAND TO FF UP IF DR. TRAN MADE T.O ABOUT ANTI ANXIETY MEDS OF THE PT. - LADAN HAND VERBALIZES UNDERSTANDING . UDS SPECIMEN COLLECTED TO BE SENT TO LAB .
[2021-11-07 07:31] LABS: BASOPHILS % (AUTO) 0.1 % (0.0-2.0); HEMATOCRIT 39.3 % (36-48); HEMOGLOBIN 12.8 g/dL (12.0-16.0); LYMPHOCYTES % (AUTO) 13.1 % (20.5-51.1); MEAN CORPUSCULAR HEMOGLOBIN 28 pg (27-31); MEAN CORPUSCULAR HGB CONC 33 g/dL (33-37); MONOCYTES # (AUTO) 0.2 K/uL (0.8-1.0); MONOCYTES % (AUTO) 2.2 % (1.7-9.3); NEUTROPHILS # (AUTO) 6.6 K/uL (1.8-7.7); NEUTROPHILS % (AUTO) 84.6 % (42.2-75.2); PLATELET COUNT (AUTO) 239 K/uL (140-450); RED BLOOD CELL COUNT(AUTO) 4.62 MIL/uL (4.20-5.40); RED CELL DISTRIBUTION WIDTH 18.2 % (11.6-13.7); WHITE BLOOD COUNT (AUTO) 7.9 K/uL (4.8-10.8)
--- NOTE | 2021-11-07 07:31 | NUR ---
OPENING NOTE: REPORT RC'VD FROM OUT GOING NOC RN, ALL CARES ASSUMED.
[2021-11-07 07:32] LABS: CHOL/HDL RATIO 4.6 (1-4.5)
--- NOTE | 2021-11-07 07:50 | NUR ---
C/O PAIN BLE, PATIENT EDUCATED ON FREQUENCY OF PAIN MEDICATION, PATIENT HAS REQUESTED AN INCREASE IN STRENGTH, WILL MAKE MD AWARE.
[2021-11-07 08:00] VITALS: BP 119/58
[2021-11-07 08:00] LABS: MAGNESIUM 1.3 mg/dL (1.8-2.4); PHOSPHORUS 3.7 mg/dL (2.5-4.9)
[2021-11-07 08:01] LABS: ANION GAP 8.1 (8-16); CARBON DIOXIDE 31.3 mmol/L (21-32); CHLORIDE 98 mmol/L (98-107); CREATININE 0.6 mg/dL (0.6-1.3); GLUCOSE 247 mg/dL (74-106); POTASSIUM 4.4 mmol/L (3.5-5.1); SODIUM SERUM 133 mmol/L (136-145); UREA NITROGEN, BLOOD 15 mg/dL (7-18)
--- NOTE | 2021-11-07 08:15 | NUR ---
PRN ORDER FOR ATIVAN OBTAINED FROM DR. TRAN, ORDER TRANSCRIBED BY [employer] TRANSPORT DRIVER.
[2021-11-07] MEDS: metFORMIN 850 MG TAB PO SCH ×2 (08:47→21:53)
[2021-11-07] MEDS: FUROSEMIDE 40 MG/4 ML VIAL IVP SCH (08:48)
[2021-11-07] MEDS: ATORVASTATIN 20 MG TAB PO SCH (08:48)
[2021-11-07] MEDS: LEVOFLOXACIN 500 MG/D5W PREMIX 100 ML IV SCH (08:48)
[2021-11-07] MEDS: LORazepam 1 MG TAB PO PRN ×2 (08:48→22:50)
[2021-11-07] MEDS ORDERED: NON-FORMULARY ITEM (Atorvastatin Calcium 1 TAB) PO SCH (09:00)
--- NOTE | 2021-11-07 09:00 | NUR ---
PRN ATIVAN GIVEN FOR ANXIETY PER ORDER, PATIENT EXPRESSES HIGH ANXIETY LEVELS R/T BEING IN THE HOSPITAL.
--- NOTE | 2021-11-07 10:34 | NUR ---
PATIENT DOWNGRADED TO MED-SURGE
--- NOTE | 2021-11-07 11:38 | NUR ---
BS 410, 10 UNITS GIVEN PER ORDER AND MD AWARE, MD STATED SHE WILL COME SEE PATIENT AT BEDSIDE.
[2021-11-07 12:00] VITALS: BP 108/54
--- NOTE | 2021-11-07 12:22 | NUR ---
PATIENT HAS BEEN SCREENED AND CATEGORIZED MODERATE NUTRITION RISK. PATIENT WILL BE SEEN WITHIN 3-5 DAYS OF ADMISSION. / [address]
--- NOTE | 2021-11-07 13:29 | NUR ---
PATIENT HAS REQUESTED NEW LUNCH TRAY, STATES, "I DO NOT LIKE THE FOOD". NEW TRAY REQUESTED FROM DIETARY.
--- NOTE | 2021-11-07 13:34 | NUR ---
DC PLANNING: THE PATIENT PRESENTED WITH SOB AFTER HER POWER WENT OUT AND SHE WAS UNABLE TO USE HER HOME O2. CXR SHOWS OPACITIES AND CHF, VENOUS DOPPLER NEGATIVE. ORDERS FOR PULMONOLOGY AND CARDIOLOGY CONSULTS, ON SOLU MEDROL, LASIX AND LEVAQUIN. CM SPOKE WITH THE PATIENT AT BEDSIDE AND CONFIRMED HER ADDRESS AND PHONE NUMBER. SHE LIVES IN A SINGLE STORY HOUSE WITH HER DAUGHTER, SON IN LAW AND A FRIEND. SHE USES A WALKER TO WALK AND SCOOT, WAS SET UP WITH [facility] ON HER LAST ADMISSION. HER PMD ARRANGED FOR A PORTABLE O2 TANK TO BE DELIVERED TO HER HOME TODAY, THE PATIENT ALSO HAS A CONCENTRATOR AND SMALLER PORTABLE O2. DC PLAN IS TO RETURN HOME WITH FAMILY, CM WILL FOLLOW.
--- NOTE | 2021-11-07 14:00 | NUR ---
CXR DONE AT BEDSIDE, MD TO READ RESULTS.
--- NOTE | 2021-11-07 14:14 | NUR ---
DR. TRAN MAKING ROUNDS, BEDSIDE REPORT GIVEN. MD TO REVIEW CHART.
[2021-11-07 15:06] LABS: T4 (THYROXINE) 7.2 ug/dL (4.5-12.0)
--- NOTE | 2021-11-07 15:37 | NUR ---
RN ROUNDS PATIENT RESTING COMFORTABLY IN NO ACUTE DISTRESS AND OR DISCOMFORT. SAFETY PRECAUTIONS IN PLACE, BED LOW AND LOCKED FOR SAFETY. ALL NEEDS MET AT THIS TIME.
[2021-11-07 16:00] VITALS: BP 114/57
[2021-11-07 17:47] LABS: BARBITURATE, URINE NEGATIVE ng/ml (NEG <=200); BENZODIAZEPINE, URINE NEGATIVE ng/mL (NEG <=200); CANNABINOID, URINE POSITIVE ng/mL (NEG <=50); COCAINE, URINE NEGATIVE ng/mL (NEG <=300); OPIATE, URINE POSITIVE ng/mL (NEG <=2000); PHENCYCLIDINE SCREEN,URINE NEGATIVE ng/mL (NEG <=25)
[2021-11-07] MEDS: HYDROcodone/APAP 10/325 MG 1 TAB TAB PO PRN ×2 (18:14→22:42)
--- NOTE | 2021-11-07 18:15 | NUR ---
C/O 10/10 LEG PAIN, PRN GIVEN PER ORDER.
--- NOTE | 2021-11-07 18:56 | NUR ---
CLOSING NOTE: REPORT GIVEN TO INCOMING NOC RN, ALL CARES ENDORSED.
--- NOTE | 2021-11-07 20:30 | NUR ---
PATIENT IS AAOX4, O2 AT 3L NC TOLERATING WELL. NO SOB NOTED. BREATHING REGULAR NON LABORED. PT IS VERBALLY RESPONSIVE. ABLE TO MAKE NEEDS KNOWN. AMBULATORY, USES BEDSIDE COMMODE. ALL SAFETY PRECAUTIONS ARE IN PLACE. CALL LIGHT WITHIN REACH. WILL CONTINUE TO MONITOR PT.
--- NOTE | 2021-11-07 21:51 | NUR ---
All 2100 scheduled medications administered per MD order.
[2021-11-07] MEDS: methylPREDNISolone SS 40 MG/ML VIAL IVP SCH (21:54)
[2021-11-07] MEDS: traZODone 50 MG TAB PO SCH (21:54)
[2021-11-08] VITALS: BP 128/71
[2021-11-08] MEDS: methylPREDNISolone SS 40 MG/ML VIAL IVP SCH ×2 (06:26→13:00)
[2021-11-08] MEDS: HYDROcodone/APAP 10/325 MG 1 TAB TAB PO PRN ×2 (06:35→11:07)
[2021-11-08 07:15] LABS: CARBON DIOXIDE 29.5 mmol/L (21-32); CHLORIDE 95 mmol/L (98-107); CREATININE 0.9 mg/dL (0.6-1.3); GLUCOSE 386 mg/dL (74-106); POTASSIUM 4.5 mmol/L (3.5-5.1); SODIUM SERUM 130 mmol/L (136-145); UREA NITROGEN, BLOOD 22 mg/dL (7-18)
[2021-11-08 07:19] LABS: MAGNESIUM 1.5 mg/dL (1.8-2.4); PHOSPHORUS 3.6 mg/dL (2.5-4.9)
[2021-11-08] MEDS: ALBUTEROL SULFATE/IPRATROPIU 3 ML SOL IH SCH (07:29)
[2021-11-08 07:32] LABS: EOSINOPHILS % (AUTO) 0.1 % (0.0-4.0); HEMATOCRIT 37.7 % (36-48); HEMOGLOBIN 12.3 g/dL (12.0-16.0); LYMPHOCYTES # (AUTO) 0.8 K/uL (2.5-16.5); LYMPHOCYTES % (AUTO) 7.6 % (20.5-51.1); MEAN CORPUSCULAR HEMOGLOBIN 28 pg (27-31); MEAN CORPUSCULAR HGB CONC 33 g/dL (33-37); MEAN CORPUSCULAR VOLUME 84.4 fL (80-94); MONOCYTES # (AUTO) 0.3 K/uL (0.8-1.0); MONOCYTES % (AUTO) 3.1 % (1.7-9.3); NEUTROPHILS # (AUTO) 9.7 K/uL (1.8-7.7); NEUTROPHILS % (AUTO) 89.2 % (42.2-75.2); PLATELET COUNT (AUTO) 232 K/uL (140-450); RED BLOOD CELL COUNT(AUTO) 4.47 MIL/uL (4.20-5.40); RED CELL DISTRIBUTION WIDTH 18.3 % (11.6-13.7); WHITE BLOOD COUNT (AUTO) 10.8 K/uL (4.8-10.8)
[2021-11-08] MEDS: INSULIN LISPRO SLIDING SCALE 100 UNITS/ML VIAL SUBQ PRN ×2 (07:41→11:36)
[2021-11-08] MEDS: BLOOD GLUCOSE MONITORING 1 DEV DEV FS SCH ×2 (07:41→11:35)
--- NOTE | 2021-11-08 07:45 | NUR ---
ENDORSED PATIENT TO AM NURSE FOR CONTINUITY OF CARE. PT BLOOD SUGAR WAS 373, HUMALOG INSULIN ADMINISTERED ORDERED PER SLIDING SCALE.
--- NOTE | 2021-11-08 07:46 | NUR ---
RECEIVED REPORT FROM EXTERNAL RELATIONS MANAGER NURSE FOR CONTINUITY OF CARE. PT IN BED SLEEPING AT THIS TIME. RESPIRATIONS ARE EVEN AND UNLABORED. PT IS ON 3L 02 VIA NC. PT IS ALERT AND ORIENTED X4. ABLE TO VERBALIZE NEEDS. PT HAS IV TO R HAND, 24G, SALINE LOCKED. CALL LIGHT WITHIN REACH. ALL SAFETY MEASURES IN PLACE. WILL CONTINUE TO MONITOR.
[2021-11-08 08:00] VITALS: BP 106/69
[2021-11-08] MEDS ORDERED: lisinopriL 5 MG TAB PO SCH (09:00)
[2021-11-08] MEDS: metFORMIN 850 MG TAB PO SCH (09:01)
[2021-11-08] MEDS: ATORVASTATIN 20 MG TAB PO SCH (09:01)
--- NOTE | 2021-11-08 09:09 | NUR ---
ADMINISTERED SCHEDULED MEDICATIONS. EDUCATED PT ON MEDS ADMINISTERED. PT VERBALIZED UNDERSTANDING. WILL CONTINUE TO MONITOR.
[2021-11-08] MEDS: FUROSEMIDE 40 MG/4 ML VIAL IVP SCH (09:20)
[2021-11-08] MEDS: LEVOFLOXACIN 500 MG/D5W PREMIX 100 ML IV SCH (09:20)
--- NOTE | 2021-11-08 09:20 | NUR ---
IV MEDICATION ADMINISTERED BY LADAN QUEZADA.
[2021-11-08] MEDS ORDERED: LEVO-315 PO (11:06)
[2021-11-08] MEDS ORDERED: PRED20TA5 PO (11:06)
[2021-11-08] MEDS ORDERED: LISI5TAB24 PO (11:06)
[2021-11-08] MEDS ORDERED: SPIMDI INH (11:06)
[2021-11-08] MEDS ORDERED: FURO-570 PO (11:06)
[2021-11-08] MEDS ORDERED: LACT500C2 PO (11:06)
[2021-11-08 11:18] VITALS: BP 106/69
--- NOTE | 2021-11-08 11:37 | NUR ---
BLOOD GLUCOSE 365. COVERED WITH 10 UNITS INSULIN PER SLIDING SCALE. CHARGE NURSE INFORMED ME THAT PT IS POSITIVE FOR MRSA IN NARES, STARTED MRSA PROTOCOLS.
[2021-11-08] MEDS ORDERED: CHLORHEXADINE GLUC 2% CLOTH TP SCH (12:00)
[2021-11-08] MEDS ORDERED: MUPIROCIN CA NASAL 2% 1GM TUBE NS SCH (12:00)
--- NOTE | 2021-11-08 13:19 | NUR ---
DISCHARGE ORDER IN PLACE. WENT OVER DISCHARGE PAPERWORK WITH PT. ANSWERED ALL QUESTIONS. PT STATES SHE CANNOT SIGN PAPERWORK AT THIS TIME. REMOVED IV. IV CATHETER INTACT. SPOKE WITH PT DAUGHTER TO INFORM HER OF DISCHARGE, PT DAUGHTER STATES NO ONE IS HOME TO PICK HER UP AT THIS TIME BUT SOMEONE IS HOME TO OPEN THE DOOR. INFORMED DAUGHTER HOSPITAL WILL ARRANGE TRANSPIRATION. DAUGHTER AND PT IN AGREEMENT, AND ARE THANKFUL FOR TRANSPORTATION. PT DISCHARGE HOME. ALL BELONGINGS TAKEN UPON DISCHARGE.
== END 2021-11-08 13:31 | disposition home health service (06) | DRG 189 ==
LOC: MED 12:07 → MTU 13:50
DX: J96.21 Acute and chronic respiratory failure with hypoxia (principal); I50.43 Acute on chronic combined systolic (congestive) and diastolic (congestive) heart failure; J18.9 Pneumonia, unspecified organism; E43 Unspecified severe protein-calorie malnutrition; J44.1 Chronic obstructive pulmonary disease with (acute) exacerbation; Z68.41 Body mass index [BMI] 40.0-44.9, adult; I11.0 Hypertensive heart disease with heart failure; E11.9 Type 2 diabetes mellitus without complications; F17.210 Nicotine dependence, cigarettes, uncomplicated; K70.30 Alcoholic cirrhosis of liver without ascites; E78.5 Hyperlipidemia, unspecified; E83.42 Hypomagnesemia; E86.0 Dehydration; Z20.822 Contact with and (suspected) exposure to COVID-19; Z88.0 Allergy status to penicillin; Z91.010 Allergy to peanuts; Z79.899 Other long term (current) drug therapy; Z79.891 Long term (current) use of opiate analgesic; Z79.84 Long term (current) use of oral hypoglycemic drugs
CPT/HCPCS: 36415; 71045; 80048; 80053; 80305; 81001; 82150; 82948; 83036; 83605; 83690; 83735; 83880; 84100; 84134; 84436; 84443; 84484; 85025; 85610; 85730; 87040; 87081; 87635-QW; 93005; 93970; 94640; 96365; 96375; 99285; J1644; J1815; J1940; J1956; J2920; J2930; Q0092

== ENCOUNTER 2021-11-21 15:44 | Emergency (ER) | payer OTHER ==
[~2021-11-21] VITALS: Ht 149.9 cm; Wt 98.4 kg
[~2021-11-21 15:44] MED LIST changes: +ACET-9534 PO; +ATOR40TA40 PO; +FURO-570 PO; -FURO20TA8 PO; +LACT500C2 PO; +LEVO-315 PO; +LISI5TAB24 PO; +PRED20TA5 PO; +SPIMDI INH
[2021-11-21 16:18] VITALS: BP 80/57
[2021-11-21 17:40] LABS: BASOPHILS # (AUTO) 0.1 K/uL (0.00-0.22); BASOPHILS % (AUTO) 0.6 % (0.0-2.0); EOSINOPHILS # (AUTO) 0.2 K/uL (0-0.4); EOSINOPHILS % (AUTO) 2.5 % (0.0-4.0); HEMATOCRIT 37.6 % (36-48); HEMOGLOBIN 12.2 g/dL (12.0-16.0); LYMPHOCYTES # (AUTO) 2.2 K/uL (2.5-16.5); LYMPHOCYTES % (AUTO) 25.1 % (20.5-51.1); MEAN CORPUSCULAR HEMOGLOBIN 28 pg (27-31); MEAN CORPUSCULAR HGB CONC 32 g/dL (33-37); MEAN CORPUSCULAR VOLUME 87.1 fL (80-94); MONOCYTES # (AUTO) 0.4 K/uL (0.8-1.0); MONOCYTES % (AUTO) 4.4 % (1.7-9.3); NEUTROPHILS % (AUTO) 67.4 % (42.2-75.2); PLATELET COUNT (AUTO) 197 K/uL (140-450); RED BLOOD CELL COUNT(AUTO) 4.32 MIL/uL (4.20-5.40); RED CELL DISTRIBUTION WIDTH 19.1 % (11.6-13.7)
[2021-11-21 18:29] LABS: ALBUMIN 2.8 g/dL (3.4-5.0); ASPARTATE AMINOTRANSFERASE 13 U/L (15-37); CARBON DIOXIDE 31.5 mmol/L (21-32); CHLORIDE 103 mmol/L (98-107); GLUCOSE 254 mg/dL (74-106); POTASSIUM 4.5 mmol/L (3.5-5.1); SODIUM SERUM 139 mmol/L (136-145); TOTAL BILIRUBIN 0.5 mg/dL (0.0-1.0); UREA NITROGEN, BLOOD 20 mg/dL (7-18)
[2021-11-21 18:44] LABS: LIPASE 44 U/L (73-393)
--- NOTE | 2021-11-21 20:27 | NUR ---
PT TAKEN TO BED 10 VIA WC
--- NOTE | 2021-11-21 20:30 | NUR ---
RECEIVED IN BED 10 WITH C/O HERNIA PAIN STATES WHICH WAS DX MONTHS AGO. PT REPORTS TAKING NORCO TODAY WITH NO RELIEF. PATIENT ON 2L NC AT HOME AT BASELINE. PMH: ASTHMA, DM, LIVER DISEASE ALLERGIES: PENICILLINS
[2021-11-21] MEDS ORDERED: KETOROLAC 60 MG/2 ML VIAL IM ONE ×2 (20:42→20:45)
[2021-11-21] MEDS ORDERED: ACET-8386 PO (21:15)
[2021-11-21] MEDS ORDERED: AZIT250T4 PO (21:15)
[2021-11-21 21:20] VITALS: BP 80/57
--- NOTE | 2021-11-21 21:20 | NUR ---
Patient discharged with v/s stable. Written and verbal after care instructions given and explained. Patient alert, oriented and verbalized understanding of instructions. Wheel Chair Assisted with to car. All questions addressed prior to discharge. ID band removed. Patient advised to follow up with PMD. Rx of Z-MONAE, AND HYDROCODONE given. Patient educated on indication of medication including possible reaction and side effects. Opportunity to ask questions provided and answered.
== END 2021-11-21 21:20 | disposition home or self-care (01) ==
LOC: MED 15:44
DX: K42.9 Umbilical hernia without obstruction or gangrene (principal); J18.9 Pneumonia, unspecified organism; J44.9 Chronic obstructive pulmonary disease, unspecified; E11.9 Type 2 diabetes mellitus without complications; Z88.0 Allergy status to penicillin; Z91.010 Allergy to peanuts; Z79.899 Other long term (current) drug therapy; Z79.84 Long term (current) use of oral hypoglycemic drugs
CPT/HCPCS: 36415; 71045; 74176; 80053; 81002; 83690; 85025; 96372; 99285; J1885; Q0092